=== PATIENT | female | born 1970 | race African-American/Black ===

== ENCOUNTER 2016-10-22 14:45 | Emergency (ER) | payer SELFPAY ==
[~2016-10-22] VITALS: Ht 157.5 cm; Wt 138.0 kg
[~2016-10-22 14:45] MED LIST: CIPR250 PO; DILTCD240 PO; DUONI NEB; NOVOLOGMXP SQ
[2016-10-22 14:47] VITALS: BP 190/131; PULSE 89; RESP 20; TEMP 98.3; O2SAT 91
[2016-10-22 15:39] VITALS: O2SAT 94
[2016-10-22] MEDS ORDERED: SODIUM CHLORIDE 0.9% FLUSH 5 ML FLUSH IVF PRN (15:45)
[2016-10-22] MEDS ORDERED: SODIUM CHLOR 0.9% 1000 ML INJ 1,000 ML IV ONE (16:04)
[2016-10-22 16:15] LABS: BASOPHIL # 0.1 TH/MM3 (0-0.2); BASOPHIL % 1.1 % (0.0-2.0); EOSINOPHIL # 0.2 TH/MM3 (0-0.4); HEMATOCRIT 38.6 % (35.0-46.0); LYMPH % 20.6 % (9.0-44.0); LYMPHOCYTE # 2.4 TH/MM3 (1.0-4.8); MEAN CELL VOLUME 77.5 FL (80.0-100.0); MEAN CORPUSCULAR HEMOGLOBIN 25.1 PG (27.0-34.0); MEAN CORPUSCULAR HGB CONC 32.4 % (32.0-36.0); MONO % 7.7 % (0.0-8.0); NEUT % 68.6 % (16.0-70.0); PLATELET COUNT 219 TH/MM3 (150-450); RED BLOOD COUNT 4.98 MIL/MM3 (4.00-5.30); WHITE BLOOD COUNT 11.7 TH/MM3 (4.0-11.0)
[2016-10-22 16:24] LABS: HEMO FLAGS AUTO DIFF
[2016-10-22 16:39] LABS: ALT (GPT) 23 U/L (10-53); ANION GAP 6 MEQ/L (5-15); AST (GOT) 12 U/L (15-37); BICARBONATE 30.6 MEQ/L (21.0-32.0); BLOOD UREA NITROGEN 10 MG/DL (7-18); CHLORIDE 105 MEQ/L (98-107); GLOMERULAR FILTRATION RATE 101 ML/MIN (>89); POTASSIUM 3.6 MEQ/L (3.5-5.1); SODIUM (NA) 142 MEQ/L (136-145)
--- NOTE | 2016-10-22 16:40 | PD ---
HPI Chief Complaint: Diabetic Time Seen by Provider: 15:34 Travel History International Travel<30 days: No Contact w/Intl Traveler<30days: No Traveled to known affect area: No History of Present Illness HPI Patient is a 38-year-old female presents emergency department for evaluation of high blood sugar. Patient states that she went to have a drug screening for her new job and she was told that she had a lot of sugar in her urine and was recommended that she come in emerged permit. Patient also stated that she knew her blood pressure was elevated yesterday because he had a headache and then blood pressure gets elevated she has headache. Patient states that she was here some time ago and was discharged on insulin which she has not been able to afford she has not been taking it. She's never taken pills for insulin. She is a type II diabetic was diagnosed late life. Denies any fevers chest pain abdominal pain shortness of breath nausea vomiting diarrhea. PFSH Past Medical History Asthma: Yes (BRONCHIAL ASTHMA) Blood Disorders: No Anxiety: No Depression: No Heart Rhythm Problems: No Cancer: No Cardiac Catheterization: No Cardiovascular Problems: Yes (htn) High Cholesterol: No Chest Pain: No Congestive Heart Failure: No COPD: No Diabetes: Yes Patient Takes Glucophage: No Diminished Hearing: No Endocrine: Yes Genitourinary: No Hypertension: Yes Immune Disorder: No Musculoskeletal: No Neurologic: No Psychiatric: No Reproductive: No Respiratory: Yes (asthma) Sleep Apnea: Yes Thyroid Disease: No ?: Not : 3 Para: 2 Miscarriage: 1 Past Surgical History Body Medical Devices: IUD IMPLANT Section: Yes (X 1) Coronary Artery Bypass Graft: No Tonsillectomy: Yes Other Surgery: No Family History Family Myocardial Infarction: Yes Social History Alcohol Use: Yes (OCC) Tobacco Use: Yes Substance Use: No Allergies-Medications (Allergen,Severity, Reaction): Coded Allergies: No Known Allergies (Verified , 12/07/15) Reported Meds & Prescriptions Reported Meds & Active Scripts Active Metformin (Metformin HCl) 850 Mg Tab 850 Mg PO BIDPC 30 Days With meals Reported Duoneb (Ipratropium-Albuterol Neb) 0.5-2.5 Mg/3 Ml Neb 1 Nebule INH Q6HR NEB PRN Review of Systems Except as stated in HPI: all other systems reviewed are Neg Physical Exam Narrative GENERAL: [Well-developed well-nourished, morbidly obese in no apparent distress. SKIN: Warm and dry. HEAD: Atraumatic. Normocephalic. EYES: Pupils equal and round. No scleral icterus. No injection or drainage. ENT: No nasal bleeding or discharge. Mucous membranes pink and moist. NECK: Trachea midline. No JVD. CARDIOVASCULAR: Regular rate and rhythm. No murmur appreciated. RESPIRATORY: No accessory muscle use. Clear to auscultation. Breath sounds equal bilaterally. GASTROINTESTINAL: Abdomen soft, non-tender, nondistended. Hepatic and splenic margins not palpable. MUSCULOSKELETAL: No obvious deformities. No clubbing. No cyanosis. No edema. NEUROLOGICAL: Awake and alert. No obvious cranial nerve deficits. Motor grossly within normal limits. Normal speech. PSYCHIATRIC: Appropriate mood and affect; insight and judgment normal. Data Data Last Documented VS Vital Signs Date Time Temp Pulse Resp B/P Pulse Ox O2 Delivery O2 Flow Rate FiO2 10/22/16 15:39 94 Room Air 10/22/16 15:35 22 10/22/16 14:54 10/22/16 14:47 98.3 89 Orders Electrocardiogram (10/22/16 15:34) Complete Blood Count With Diff (10/22/16 15:34) Comprehensive Metabolic Panel (10/22/16 15:34) Beta Hydroxybutyrate (Acetone) (10/22/16 15:34) Urinalysis - C+S If Indicated (10/22/16 15:34) Ecg Monitoring (10/22/16 15:34) Iv Access Insert/Monitor (10/22/16 15:34) Oximetry (10/22/16 15:34) NPO (10/22/16 15:34) Sodium Chlor 0.9% 1000 Ml Inj (Ns 1000 M (10/22/16 16:04) Sodium Chloride 0.9% Flush (Ns Flush) (10/22/16 15:45) Troponin I (10/22/16 15:34) Labs Laboratory Tests Test 10/22/16 10/22/16 15:30 17:40 White Blood Count 11.7 TH/MM3 Red Blood Count 4.98 MIL/MM3 Hemoglobin 12.5 GM/DL Hematocrit 38.6 % Mean Corpuscular Volume 77.5 FL Mean Corpuscular Hemoglobin 25.1 PG Mean Corpuscular Hemoglobin 32.4 % Concent Red Cell Distribution Width 16.0 % Platelet Count 219 TH/MM3 Mean Platelet Volume 9.1 FL Neutrophils (%) (Auto) 68.6 % Lymphocytes (%) (Auto) 20.6 % Monocytes (%) (Auto) 7.7 % Eosinophils (%) (Auto) 2.0 % Basophils (%) (Auto) 1.1 % Neutrophils # (Auto) 8.0 TH/MM3 Lymphocytes # (Auto) 2.4 TH/MM3 Monocytes # (Auto) 0.9 TH/MM3 Eosinophils # (Auto) 0.2 TH/MM3 Basophils # (Auto) 0.1 TH/MM3 CBC Comment AUTO DIFF Differential Comment AUTO DIFF CONFIRMED Platelet Estimate NORMAL Platelet Morphology Comment NORMAL Red Cell Morphology Comment NORMAL Sodium Level 142 MEQ/L Potassium Level 3.6 MEQ/L Chloride Level 105 MEQ/L Carbon Dioxide Level 30.6 MEQ/L Anion Gap 6 MEQ/L Blood Urea Nitrogen 10 MG/DL Creatinine 0.74 MG/DL Estimat Glomerular Filtration 101 ML/MIN Rate Random Glucose 145 MG/DL Calcium Level 8.7 MG/DL Total Bilirubin 0.2 MG/DL Aspartate Amino Transf 12 U/L (AST/SGOT) Alanine Aminotransferase 23 U/L (ALT/SGPT) Alkaline Phosphatase 74 U/L Troponin I LESS THAN 0.02 NG/ML Total Protein 7.8 GM/DL Albumin 3.1 GM/DL B-Hydroxybutyrate 0.08 MMOL/L Urine Color LIGHT-YELLOW Urine Turbidity CLEAR Urine pH 7.5 Urine Specific [place] 1.009 Urine Protein NEG mg/dL Urine Glucose (UA) NEG mg/dL Urine Ketones NEG mg/dL Urine Occult Blood NEG Urine Nitrite NEG Urine Bilirubin NEG Urine Urobilinogen LESS THAN 2.0 MG/DL Urine Leukocyte Esterase NEG Urine RBC LESS THAN 1 /hpf Urine Squamous Epithelial 1 /hpf Cells Microscopic Urinalysis Comment CULT NOT INDICATED MDM Medical Decision Making Medical Screen Exam Complete: Yes Emergency Medical Condition: Yes Differential Diagnosis Headache, hyperglycemia, DKA unlikely, electrolyte abnormality, glycosuria. Narrative Course Patient is a 38-year-old female presents with headache and a symptomatic glycosuria, she appears well in no apparent distress. Saturating 95% on room air in the emergency department. We'll check basic labs, patient may be a candidate for metformin more than insulin and she never been on pills before this may be preferential to cautiously insulin therapy. I anticipate her labs will be reassuring and she will be discharged home. Patient revisited and discussed her results with her including CBC and BMP which other than hyperglycemia within normal limits. She has no physical complaints or warrants further workup at this time. Discussed with her that I' m unsure why they want to stay control with insulin for her when she left the hospital however insulin therapy can be expensive. I discussed with her that another reasonable option is to start metformin and she is agreeable. Discussed the risks benefits, occasions of all metformin therapy. Prescription written for 850 mg twice a day. Discussed need for follow-up with a primary care physician and she is currently establishing with one. She stable for discharge at this time. Diagnosis Primary Impression: Hyperglycemia due to type 2 diabetes mellitus Qualified Code: E11.65 - Type 2 diabetes mellitus with hyperglycemia, without long-term current use of insulin Med/Other Pt SpecificInfo: Prescription(s) given Scripts Metformin 850 Mg [id number] Mg PO BIDPC 30 Days Ref 0 With meals Prov:Christiano Whatley MD 10/22/16 Disposition: 01 DISCHARGE HOME Condition: Stable Christiano Whatley MD Oct 22, 2016 16:40
[2016-10-22 16:51] LABS: PLATELET ESTIMATE SMEAR NORMAL (NORMAL); PLATELET MORPHOLOGY NORMAL (NORMAL); SCAN/DIFF AUTO DIFF CONFIRMED
[2016-10-22 16:57] LABS: ALKALINE PHOSPHATASE 74 U/L (45-117); BETA-HYDROXYBUTYRATE 0.08 MMOL/L (0.00-0.39); TOTAL BILIRUBIN ADULT 0.2 MG/DL (0.2-1.0)
[2016-10-22] MEDS ORDERED: IPRASOL INH (17:16)
[2016-10-22] MEDS ORDERED: METF850T PO (18:09)
[2016-10-22 18:18] LABS: BLOOD, URINE NEG (NEG); GLUCOSE,URINE NEG (NEG); KETONE, URINE NEG (NEG); NITRITE,URINE NEG (NEG); PH, URINE 7.5 (5.0-8.5); SQUAMOUS EPITHELIAL CELL URINE 1 /hpf (0-5); URINE COLOR LIGHT-YELLOW (YELLW/STRAW)
[2016-10-22 18:33] LABS: COMMENT (UR) CULT NOT INDICATED; CULTURE IF INDICATED CULT NOT INDICATED
--- NOTE | 2016-10-22 20:39 | EKG ---
Date Performed: 10/22/2016 Time Performed: 16:31:10 PTAGE: 46 years EKG: Sinus rhythm NONSPECIFIC T-WAVE ABNORMALITY BORDERLINE ECG PREVIOUS TRACING : 12/07/2015 14.15 Compared to previous tracing, sinus rhythm has replaced sup raventricular tachycardia, heart rate has slowed. DOCTOR: Jad Weeks Interpretating Date/Time 10/22/2016 20:38:49
== END 2016-10-22 19:30 | disposition home or self-care (01) ==
LOC: NEPE 14:45
DX: E11.65 Type 2 diabetes mellitus with hyperglycemia (principal); I10 Essential (primary) hypertension; Z79.4 Long term (current) use of insulin; Z72.0 Tobacco use
CPT/HCPCS: 80053; 81001; 82010; 84484; 85025; 93005; 96360; 99285; J7030

== ENCOUNTER 2016-11-19 17:54 | Emergency (ER) | payer SELFPAY ==
[~2016-11-19] VITALS: Ht 157.5 cm; Wt 157.2 kg
[~2016-11-19 17:54] MED LIST changes: -CIPR250 PO; -DILTCD240 PO; -DUONI NEB; +IPRASOL INH; +METF850T PO; -NOVOLOGMXP SQ
[2016-11-19 18:16] VITALS: BP 138/101; PULSE 84; RESP 20; TEMP 98.4; O2SAT 96
--- NOTE | 2016-11-19 18:43 | PD ---
HPI Chief Complaint: Cold / Flu Symptoms Time Seen by Provider: 18:40 Travel History International Travel<30 days: No Contact w/Intl Traveler<30days: No Traveled to known affect area: No History of Present Illness HPI 46-year-old female with history of COPD, morbid obesity, diabetes, presents to the ER today because she states she has had 2 weeks' history of coughing, is now coughing up brown phlegm. She states that it doesn't seem to be improving. She denies any fevers, chest pains, new shortness of breath, or other symptoms. She states that she is chronically short of breath. She has been using nebulizers at home intermittently. Modifying Factors: None Associated Signs & Symptoms: Coughing with brown phlegm for 2 weeks Risk Factors: COPD history PFSH Past Medical History Asthma: Yes (BRONCHIAL ASTHMA) Blood Disorders: No Anxiety: No Depression: No Heart Rhythm Problems: No Cancer: No Cardiac Catheterization: No Cardiovascular Problems: Yes (htn) High Cholesterol: No Chest Pain: No Congestive Heart Failure: No COPD: No Diabetes: Yes Diminished Hearing: No Endocrine: Yes Genitourinary: No Hypertension: Yes Immune Disorder: No Musculoskeletal: No Neurologic: No Psychiatric: No Reproductive: No Respiratory: Yes (asthma) Sleep Apnea: Yes Thyroid Disease: No ?: Not 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 Para: 2 Miscarriage: 1 Past Surgical History Body Medical Devices: IUD IMPLANT Section: Yes (X 1) Coronary Artery Bypass Graft: No Tonsillectomy: Yes Other Surgery: No Social History Alcohol Use: Yes (OCC) Tobacco Use: Yes Substance Use: No Allergies-Medications (Allergen,Severity, Reaction): Coded Allergies: No Known Allergies (Verified , 11/19/16) Reported Meds & Prescriptions Reported Meds & Active Scripts Active Metformin (Metformin HCl) 850 Mg Tab 850 Mg PO BIDPC 30 Days With meals Review of Systems Except as stated in HPI: all other systems reviewed are Neg Physical Exam Narrative GENERAL: Morbidly obese middle age -[place] female patient currently none acute distress. SKIN: Warm and dry. HEAD: Atraumatic. Normocephalic. EYES: Pupils equal and round. No scleral icterus. No injection or drainage. ENT: No nasal bleeding or discharge. Mucous membranes pink and moist. Mild pharyngeal erythema without significant exudates. NECK: Trachea midline. No JVD. CARDIOVASCULAR: Regular rate and rhythm. No murmur appreciated. RESPIRATORY: No accessory muscle use. Clear to auscultation. Breath sounds equal bilaterally. GASTROINTESTINAL: Abdomen obese, soft, non-tender, nondistended. Hepatic and splenic margins not palpable. MUSCULOSKELETAL: No obvious deformities. No clubbing. No cyanosis. No edema. NEUROLOGICAL: Awake and alert. No obvious cranial nerve deficits. Motor grossly within normal limits. Normal speech. PSYCHIATRIC: Appropriate mood and affect; insight and judgment normal. Data Data Last Documented VS Vital Signs Date Time Temp Pulse Resp B/P Pulse Ox O2 Delivery O2 Flow Rate FiO2 11/19/16 18:16 98.4 84 20 138/101 96 Orders Chest, Single Ap (11/19/16 18:37) Albuterol-Ipratropium Neb (Duoneb Neb) (11/19/16 18:45) [facility] Medical Decision Making Medical Screen Exam Complete: Yes Emergency Medical Condition: Yes Medical Record Reviewed: Yes Differential Diagnosis Coughing for 2 weeks with phlegmbronchitis versus pneumonia versus COPD exacerbation Narrative Course Patient was given nebulizers in the ER. Chest x-rays ordered for the patient. Physician Communication Physician Communication Chest x-ray signed out to Dr. Tyler at 7 PM. Diagnosis Primary Impression: Bronchitis Med/Other Pt SpecificInfo: Prescription(s) given Scripts Prednisone 50 Mg Tab50 Mg PO DAILY #5 TAB Ref 0 Prov:Elio Tam MD 11/19/16 Albuterol 6.7 GM Inh (Proventil Hfa 6.7 GM Inh)90 Mcg/Act Aer2 Puff INH Q4-6H PRN (SHORTNESS OF BREATH) #1 INHALER Ref 0 Prov:Elio Tam MD 11/19/16 Azithromycin (Zithromax Z-Logan)250 Mg [id number] Mg PO DIRECTED #1 DSPK Ref 0 500 MG (2 tabs) day 1, then 1 tab days 2-5. Prov:Elio Tam MD 11/19/16 Condition: Stable Elio Tam MD Nov 19, 2016 18:43
[2016-11-19] MEDS ORDERED: RESP: ALBUTEROL 2.5 MG/IPRATROPIUM 0.5 MG NEB (SCH) INH ONE (18:45)
[2016-11-19] MEDS ORDERED: ZITHTAB PO (19:03)
[2016-11-19] MEDS ORDERED: PRED50 PO (19:04)
[2016-11-19] MEDS ORDERED: ALBU6.7H INH (19:04)
[2016-11-19 19:23] VITALS: BP 163/81; PULSE 81; RESP 18; O2SAT 96
--- NOTE | 2016-11-19 19:31 | RADHPO ---
EXAM DATE/TIME: 11/19/2016 19:11 [facility] COMPARISON: CHEST SINGLE AP, December 07, 2015, 14:16. INDICATIONS : Cough for over two weeks. MEDICAL HISTORY : Diabetes mellitus type II. SURGICAL HISTORY : None. ENCOUNTER: Initial ACUITY: 2 weeks PAIN SCORE: 3/10 LOCATION: Bilateral chest FINDINGS: Mild basilar density most characteristic of minimal atelectasis or scarring. Heart size upper limits of normal to mildly enlarged. No effusion or pneumothorax. CONCLUSION: 1. Minimal basilar atelectasis or scarring. No significant change from November 2015. Arden Reyes MD on November 19, 2016 at 19:29 Board Certified Radiologist. This report was verified electronically.
--- NOTE | 2016-11-19 19:39 | PD ---
Physical Exam Time Seen by Provider: 19:[address] Dodson left this patient with me to check the radiologist reading of the chest x-ray and to discharge the patient on medications that Dr. Dodson prescribed if there was no acute change on the chest x-ray. Data Data Last Documented VS Vital Signs Date Time Temp Pulse Resp B/P Pulse Ox O2 Delivery O2 Flow Rate FiO2 11/19/16 19:24 Room Air 11/19/16 19:23 81 18 163/81 96 11/19/16 18:16 98.4 Orders Chest, Single Ap (11/19/16 18:37) Albuterol-Ipratropium Neb (Duoneb Neb) (11/19/16 18:45) MDM Medical Record Reviewed: Yes Supervised Visit with JANE: Yes Interpretation(s) A chest x-ray shows minimal basilar atelectasis or scarring and no significant change from November 2015. Differential Diagnosis Bronchitis, pneumonia, pneumothoraxhighly unlikely, viral syndrome Narrative Course The patient appears to have a bronchitis. Dr. Dodson prescribed medications for this patient. There are no acute findings on the chest x-ray. Diagnosis Primary Impression: Bronchitis Additional Instruction: As Dr. Dodson discussed, take the medications as prescribed and follow-up with your primary care physician next week. Med/Other Pt SpecificInfo: Prescription(s) given Scripts Prednisone 50 Mg Tab50 Mg PO DAILY #5 TAB Ref 0 Prov:Elio Tam MD 11/19/16 Albuterol 6.7 GM Inh (Proventil Hfa 6.7 GM Inh)90 Mcg/Act Aer2 Puff INH Q4-6H PRN (SHORTNESS OF BREATH) #1 INHALER Ref 0 Prov:Elio Tam MD 11/19/16 Azithromycin (Zithromax Z-Logan)250 Mg [id number] Mg PO DIRECTED #1 DSPK Ref 0 500 MG (2 tabs) day 1, then 1 tab days 2-5. Prov:Elio Tam MD 11/19/16 Condition: Stable Obdulio Tyler MD Nov 19, 2016 19:39
== END 2016-11-19 19:48 | disposition home or self-care (01) ==
LOC: PHED 17:54
DX: J40 Bronchitis, not specified as acute or chronic (principal); Z72.0 Tobacco use
CPT/HCPCS: 71010; 94664; 99283

== ENCOUNTER 2016-12-14 12:06 | Emergency (ER) | payer SELFPAY ==
[~2016-12-14] VITALS: Ht 157.5 cm; Wt 145.0 kg
[~2016-12-14 12:06] MED LIST changes: +ALBU6.7H INH; -IPRASOL INH; +PRED50 PO; +ZITHTAB PO
[2016-12-14 12:08] VITALS: BP 198/94; PULSE 94; RESP 20; TEMP 98.5; O2SAT 94
--- NOTE | 2016-12-14 12:36 | PD ---
Physical Exam Date Seen by Provider: Dec 14, 2016 Time Seen by Provider: 12:32 Narrative Pt is a 46 year old female presenting to the ED with c/o of left knee weakness and right leg sores. Pt states she started a new job Monday and couldn't walk. Reports knee pain. She has been taking Motrin 800mg with no relief. Pt reports pain 8/10. Right leg wounds come and go but they have been present for a week. Draining. BP elevated, pt reports hx of hypertension but is not on medication. Awaiting bed placement. Data Data Last Documented VS Vital Signs Date Time Temp Pulse Resp B/P Pulse Ox O2 Delivery O2 Flow Rate FiO2 12/14/16 12:08 98.5 94 20 198/94 94 Room Air MDM Supervised Visit with JANE: Mary Cortes Dec 14, 2016 12:36
--- NOTE | 2016-12-14 13:01 | PD ---
HPI . chronic left knee pain, small blister to right medial knee skin fold Chief Complaint: Musculoskeletal Complaint Time Seen by Provider: 13:01 Travel History International Travel<30 days: No Contact w/Intl Traveler<30days: No Traveled to known affect area: No History of Present Illness HPI 46-year-old female with history of diabetes, obesity and chronic pain of the knees here with complaints of worsening left knee pain. 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 She is now having difficulty with the left knee and tells me that it is extremely painful to stand for prolonged periods. She denies any recent trauma or injury. She is here hoping that something can be done for her chronic knee pain. She also has a small blister to her right medial knee that has been present for quite some time. She wanted to have it evaluated. I have seen her before through the patient assistance program, but she was unable to get the assistance as there were some financial issues with her daughter. She does not have a PCP. She has no other concerns. PFSH Past Medical History Asthma: Yes (BRONCHIAL ASTHMA) Blood Disorders: No Anxiety: No Depression: No Heart Rhythm Problems: No Cancer: No Cardiac Catheterization: No Cardiovascular Problems: No High Cholesterol: No Chemotherapy: No Chest Pain: No Congestive Heart Failure: No COPD: No Cerebrovascular Accident: No Diabetes: Yes (ORAL MEDS) Diminished Hearing: No Endocrine: Yes Genitourinary: No Hypertension: Yes Immune Disorder: No Musculoskeletal: No Neurologic: No Psychiatric: No Reproductive: No Respiratory: Yes (ASTHMA, SMOKING) Sleep Apnea: Yes Thyroid Disease: No LMP: November, : 3 Para: 2 Miscarriage: 1 Past Surgical History Body Medical Devices: IUD IMPLANT Section: Yes (X 1) Coronary Artery Bypass Graft: No Hysterectomy: No Tonsillectomy: Yes Other Surgery: No Social History Alcohol Use: Yes (OCC) Tobacco Use: No (DENIES) Substance Use: No Allergies-Medications (Allergen,Severity, Reaction): Coded Allergies: No Known Allergies (Verified , 11/19/16) Reported Meds & Prescriptions Reported Meds & Active Scripts Active Proventil Hfa 6.7 GM Inh (Albuterol Sulfate) 90 Mcg/Act Aer 2 Puff INH Q4-6H PRN Metformin (Metformin HCl) 850 Mg Tab 850 Mg PO BIDPC 30 Days With meals Review of Systems General / Constitutional: No: Fever Eyes: No: Visual changes HENT: No: Headaches Cardiovascular: No: Chest Pain or Discomfort Respiratory: No: Shortness of Breath Gastrointestinal: No: Abdominal Pain Genitourinary: No: Dysuria Musculoskeletal: Positive: Pain (left knee pain) Skin: Positive Other (right knee wound ), No Rash Neurologic: No: Weakness Psychiatric: No: Depression Endocrine: No: Polydipsia Hematologic/Lymphatic: No: Easy Bruising Physical Exam Narrative GENERAL: AAO x 3, no acute distress, Well-nourished, well-developed patient. morbidly obese SKIN: Warm and dry. No visible rashes or bruising. small 1 cm healing blister to the skin fold of the medial knee. No evidence of infection, no purulence, drainage, or abn. HEAD: Normocephalic and atraumatic. EYES: No scleral icterus. No injection or drainage. ENT: No nasal drainage noted. Mucous membranes pink. Airway patent. NECK: Supple, trachea midline. No JVD. CARDIOVASCULAR: Regular rate and rhythm without murmurs, gallops, or rubs. RESPIRATORY: Breath sounds equal bilaterally. No accessory muscle use. No rhonchi or rales. GASTROINTESTINAL: Abdomen soft, non-tender, nondistended. EXTREMITIES: No cyanosis or edema. Full ROM b/l knee. mild crepitus of left knee. Valgus and vargus stress testing normal. posterior tibial pulses are normal, legs are symmetrical bilaterally BACK: Nontender without obvious deformity. No CVA tenderness. PSYCH: AAO x 3, normal affect. Data Data Last Documented VS Vital Signs Date Time Temp Pulse Resp B/P Pulse Ox O2 Delivery O2 Flow Rate FiO2 12/14/16 12:08 98.5 94 20 198/94 94 Room Air MDM Medical Decision Making Medical Screen Exam Complete: Yes Emergency Medical Condition: No Medical Record Reviewed: Yes Differential Diagnosis chronic knee pain, skin blister, Narrative Course 46-year-old female with history of diabetes, obesity and chronic pain of the knees here with complaints of worsening left knee pain. 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 She is now having difficulty with the left knee and tells me that it is extremely painful to stand for prolonged periods. She denies any recent trauma or injury. She is here hoping that something can be done for her chronic knee pain. She also has a small blister to her right medial knee that has been present for quite some time. She wanted to have it evaluated. I have seen her before through the patient assistance program, but she was unable to get the assistance as there were some financial issues with her daughter. She does not have a PCP. She has no other concerns. Patient seen and examined. She appears to have chronic knee pain and a small 1 cm blister that is not infected and actually healing. I had a long discussion with her regarding her chronic knee issues. I've explained to her that this is not an acute issue and imaging is not indicated. She was understanding. I explained that the right leg blister is healing and not infected. A medical screening exam was performed: At the time of evaluation the presenting medical condition was determined not to be of an emergent nature. The patient was given the option of receiving additional care, but declined. Patient was given options for additional community resources from which to obtain care. The Patient Has Been advised to seek medical attention for their presenting complaint. The patient has been advised to return to the ER at any time if an emergent condition develops. Diagnosis Primary Impression: Encounter for medical screening examination Condition: Linda Melo Dec 14, 2016 13:01
== END 2016-12-14 13:45 | disposition left against medical advice (07) ==
LOC: NEPK 12:06
DX: M25.561 Pain in right knee (principal); M25.562 Pain in left knee; G89.29 Other chronic pain
CPT/HCPCS: 99281

== ENCOUNTER 2017-05-18 10:28 | Emergency (ER) | payer SELFPAY ==
[~2017-05-18] VITALS: Ht 157.5 cm; Wt 136.5 kg
[~2017-05-18 10:28] MED LIST changes: -PRED50 PO; -ZITHTAB PO
[2017-05-18 10:30] VITALS: BP 207/95; PULSE 108; RESP 16; TEMP 99.1; O2SAT 99
[2017-05-18] MEDS ORDERED: RESP: ALBUTEROL 2.5 MG/IPRATROPIUM 0.5 MG NEB (SCH) INH ONE (11:15)
[2017-05-18] MEDS ORDERED: MEDR4PAK PO (12:10)
[2017-05-18] MEDS ORDERED: ZITHTAB PO (12:10)
--- NOTE | 2017-05-18 12:10 | PD ---
HPI Chief Complaint: Respiratory Symptoms Time Seen by Provider: 11:00 Travel History International Travel<30 days: No Contact w/Intl Traveler<30days: No Traveled to known affect area: No History of Present Illness HPI C/O COUGH, DRY, WHEEZING, WITHOUT ANY PRODUCTIVE SPUTUM, PATIENT IS OUT OF HOME MEDS AND STATES GETS THIS RESP ILLNESS AT LEAST ONCE A YEAR. PFSH Past Medical History Asthma: Yes (BRONCHIAL ASTHMA) Blood Disorders: No Anxiety: No Depression: No Heart Rhythm Problems: No Cancer: No Cardiac Catheterization: No Cardiovascular Problems: No High Cholesterol: No Chemotherapy: No Chest Pain: No Congestive Heart Failure: No COPD: No Cerebrovascular Accident: No Diabetes: Yes Patient Takes Glucophage: No Diminished Hearing: No Endocrine: Yes Genitourinary: No Hypertension: Yes Immune Disorder: No Musculoskeletal: No Neurologic: No Psychiatric: No Reproductive: No Respiratory: Yes (ASTHMA) Sleep Apnea: Yes Thyroid Disease: No Tetanus Vaccination: Unknown Influenza Vaccination: No ?: Not LMP: : 3 Para: 2 Miscarriage: 1 : 0 Past Surgical History Body Medical Devices: IUD IMPLANT Section: Yes (X 1) Coronary Artery Bypass Graft: No Hysterectomy: No Tonsillectomy: Yes Other Surgery: No Family History Family Myocardial Infarction: Yes Social History Alcohol Use: Yes (OCC) Tobacco Use: No (DENIES) Substance Use: No Allergies-Medications (Allergen,Severity, Reaction): Coded Allergies: No Known Allergies (Verified , 05/18/17) Reported Meds & Prescriptions Reported Meds & Active Scripts Active Zithromax Z-Logan (Azithromycin) 250 Mg Dspk 250 Mg PO DIRECTED 500 MG (2 tabs) day 1, then 1 tab days 2-5. Medrol Dosepak (Methylprednisolone) 4 Mg Dspk 4 Mg PO DIRECTED Per Pharmacist direction Proventil Hfa 6.7 GM Inh (Albuterol Sulfate) 90 Mcg/Act Aer 2 Puff INH Q4-6H PRN Metformin (Metformin HCl) 850 Mg Tab 850 Mg PO BIDPC 30 Days With meals Review of Systems Except as stated in HPI: all other systems reviewed are Neg Respiratory: Positive: Cough, Wheezing Physical Exam Narrative GENERAL: SKIN: Warm and dry. HEAD: Atraumatic. Normocephalic. EYES: Pupils equal and round. No scleral icterus. No injection or drainage. ENT: No nasal bleeding or discharge. Mucous membranes pink and moist. NECK: Trachea midline. No JVD. CARDIOVASCULAR: Regular rate and rhythm. RESPIRATORY: No accessory muscle use. WHEEZING BUT WITH GREAT TV. Breath sounds equal bilaterally. GASTROINTESTINAL: Abdomen soft, non-tender, nondistended. MUSCULOSKELETAL: Extremities without clubbing, cyanosis, or edema. No obvious deformities. NEUROLOGICAL: Awake and alert. No obvious cranial nerve deficits. Motor grossly within normal limits. Five out of 5 muscle strength in the arms and legs. Normal speech. PSYCHIATRIC: Appropriate mood and affect; insight and judgment normal. Data Data Last Documented VS Vital Signs Date Time Temp Pulse Resp B/P (MAP) Pulse Ox O2 Delivery O2 Flow Rate FiO2 05/18/17 12:22 05/18/17 10:30 99.1 108 16 99 Orders Orders Chest, Single Ap (05/18/17 11:06) Albuterol-Ipratropium Neb (Duoneb Neb) (05/18/17 11:15) MDM Medical Decision Making Medical Screen Exam Complete: Yes Emergency Medical Condition: Yes Medical Record Reviewed: Yes Differential Diagnosis ASTHMA V BRONCHITIS V PNA Narrative Course AFTER EVALUATION OF CHEST XRAY, NO PNEUMONIA NOTED, AND PATIENT IMPROVED GREATLY AFTER NEBS, WILL D/C HOME WITH ABX, STEROID AND INHALER Diagnosis Primary Impression: Bronchitis Patient Instructions: General Instructions, Wheezing (ED) Scripts Azithromycin (Zithromax Z-Logan) 250 Mg Dspk 250 MG PO DIRECTED for Infection, #1 DSPK 0 Refills 500 MG (2 tabs) day 1, then 1 tab days 2-5. Prov: Steven Patel MD 05/18/17 Methylprednisolone Dosepak (Medrol Dosepak) 4 Mg Dspk 4 MG PO DIRECTED, #1 DSPK 0 Refills Per Pharmacist direction Prov: Steven Patel MD 05/18/17 Disposition: 01 DISCHARGE HOME Condition: Stable Steven Patel MD May 18, 2017 12:10
--- NOTE | 2017-05-18 12:28 | RADRPT ---
EXAM DATE/TIME: 05/18/2017 12:01 [facility] COMPARISON: CHEST SINGLE AP, November 19, 2016, 19:11. INDICATIONS : Cough and short of breath for several days MEDICAL HISTORY : asthma SURGICAL HISTORY : None. ENCOUNTER: Initial ACUITY: 3 days PAIN SCORE: 0/10 LOCATION: Bilateral chest FINDINGS: A single view of the chest demonstrates the lungs to be symmetrically aerated without evidence of mas s, infiltrate or effusion. Linear atelectatic changes in the left lower lung field. Heart size is pr ominent but well compensated. Osseous structures are intact. CONCLUSION: 1. Linear atelectatic changes in the left lower lung field. Lungs are otherwise clear. 2. Compensated cardiomegaly. John Pratt MD on May 18, 2017 at 12:26 Board Certified Radiologist. This report was verified electronically.
== END 2017-05-18 12:25 | disposition home or self-care (01) ==
LOC: NEPD 10:28
DX: J20.9 Acute bronchitis, unspecified (principal); J45.909 Unspecified asthma, uncomplicated; G47.30 Sleep apnea, unspecified
CPT/HCPCS: 71010; 94664; 99284

== ENCOUNTER 2017-05-20 08:24 | Observation (INO) | payer SELFPAY ==
[2017-05-20] VITALS (7 sets, daily range): BP systolic 138–201; BP diastolic 78–116; PULSE 66–84; RESP 18; TEMP 98.1–98.9; O2SAT 93–96
[~2017-05-20] VITALS: Ht 157.5 cm; Wt 152.4 kg
[~2017-05-20 08:24] MED LIST changes: +MEDR4PAK PO; +ZITHTAB PO
--- NOTE | 2017-05-20 08:39 | PD ---
HPI Chief Complaint: shortness of breath Time Seen by Provider: 08:35 Travel History International Travel<30 days: No Contact w/Intl Traveler<30days: No Traveled to known affect area: No History of Present Illness HPI 46-year-old female patient with history of asthma, seen 2 days ago for bronchitis in the ER, had been treated with steroids and Zithromax for about 2 days, returns to the ER today because she states that she has been using her nebulizer and inhaler at the medications given but she states that her cough does not seem to be getting any better. She states that in fact is John worse this morning. She has not use any inhalers this morning. She also complains of low-grade subjective fevers. She denies any nausea, vomiting, chest pains, or any other symptoms. Modifying Factors: None Associated Signs & Symptoms: Coughing, shortness of breath Risk Factors: Seen recently for bronchitis, asthma history PFSH Past Medical History Asthma: Yes (BRONCHIAL ASTHMA) Blood Disorders: No Anxiety: No Depression: No Heart Rhythm Problems: No Cancer: No Cardiac Catheterization: No Cardiovascular Problems: No High Cholesterol: No Chemotherapy: No Chest Pain: No Congestive Heart Failure: No COPD: No Cerebrovascular Accident: No Diabetes: Yes Diminished Hearing: No Endocrine: Yes Genitourinary: No Hypertension: Yes Immune Disorder: No Musculoskeletal: No Neurologic: No Psychiatric: No Reproductive: No Respiratory: Yes (ASTHMA) Sleep Apnea: Yes Thyroid Disease: No : 3 Para: 2 Miscarriage: 1 : 0 Past Surgical History Body Medical Devices: IUD IMPLANT Section: Yes (X 1) Coronary Artery Bypass Graft: No Hysterectomy: No Tonsillectomy: Yes Other Surgery: No Social History Alcohol Use: Yes (OCC) Tobacco Use: No (DENIES) Substance Use: No Allergies-Medications (Allergen,Severity, Reaction): Coded Allergies: No Known Allergies (Verified , 05/20/17) Reported Meds & Prescriptions Reported Meds & Active Scripts Active Zithromax Z-Logan (Azithromycin) 250 Mg Dspk 250 Mg PO DIRECTED 500 MG (2 tabs) day 1, then 1 tab days 2-5. Medrol Dosepak (Methylprednisolone) 4 Mg Dspk 4 Mg PO DIRECTED Per Pharmacist direction Proventil Hfa 6.7 GM Inh (Albuterol Sulfate) 90 Mcg/Act Aer 2 Puff INH Q4-6H PRN Review of Systems Except as stated in HPI: all other systems reviewed are Neg Physical Exam Narrative GENERAL: Well-developed middle age obese -[place] female patient currently in mild respiratory distress, coughing intermittently, awake, alert, oriented 3. SKIN: Focused skin assessment warm/dry. HEAD: Atraumatic. Normocephalic. EYES: Pupils equal and round. No scleral icterus. No injection or drainage. ENT: No nasal bleeding or discharge. Mucous membranes pink and moist. NECK: Trachea midline. No JVD. CARDIOVASCULAR: Regular rate and rhythm. No murmur appreciated. RESPIRATORY: Mild accessory muscle use. Mild wheezes throughout bilaterally with no crackles or rhonchi. Breath sounds equal bilaterally. GASTROINTESTINAL: Abdomen soft, non-tender, nondistended. Hepatic and splenic margins not palpable. MUSCULOSKELETAL: No obvious deformities. No clubbing. No cyanosis. No edema. NEUROLOGICAL: Awake and alert. No obvious cranial nerve deficits. Motor grossly within normal limits. Normal speech. PSYCHIATRIC: Appropriate mood and affect; insight and judgment normal. Data Data Last Documented VS Vital Signs Date Time Temp Pulse Resp B/P (MAP) Pulse Ox O2 Delivery O2 Flow Rate FiO2 05/20/17 08:40 20 96 Room Air 05/20/17 08:30 98.9 84 201/116 (144) Orders Orders Ecg Monitoring (05/20/17 08:35) Oximetry (05/20/17 08:35) Oxygen Administration (05/20/17 08:35) Chest, Single Ap (05/20/17 08:35) Albuterol-Ipratropium Neb (Duoneb Neb) (05/20/17 08:45) Dexamethasone Inj (Decadron Inj) (05/20/17 08:45) Clonidine (Catapres) (05/20/17 09:45) Albuterol-Ipratropium Neb (Duoneb Neb) (05/20/17 10:00) Admit Order (Ed Use Only) (05/20/17 10:49) [facility] Medical Decision Making Medical Screen Exam Complete: Yes Emergency Medical Condition: Yes Medical Record Reviewed: Yes Interpretation(s) Last 24 hours Impressions Chest X-Ray 05/20/17 0836 Signed Impressions: Service Date/Time: Monday, May 20, 2017 09:29 - CONCLUSION: Underinflation with linear atelectasis versus scar at the left lung base. Otherwise, no acute finding is appreciated given the technique. Beto Owens MD Differential Diagnosis Bronchitis versus pneumonia versus asthma exacerbation versus viral pneumonitis Narrative Course Patient has been on antibiotics and asthma treatment for 2 days without improvement. Chest x-ray did not show any signs of acute pneumonia or other acute processes. She was given steroid and nebulizer treatments with only mild improvement in symptoms. After 4 nebulizers, she is still wheezing. At this point, my plan would be to admit her for failed outpatient therapy. Case was discussed with Dr. Coronado for admission. Diagnosis Primary Impression: Asthma exacerbation Admitting Information Admitting Physician Requests: Admit Elio Tam MD May 20, 2017 08:39
[2017-05-20] MEDS ORDERED: DEXAMETHASONE SOD PHOS 4 MG/ML VIAL IM ONE (08:45)
[2017-05-20] MEDS: RESP: ALBUTEROL 2.5 MG/IPRATROPIUM 0.5 MG NEB (SCH) INH ×4 (08:53→10:10)
[2017-05-20] MEDS ORDERED: cloNIDine HCL 0.2 MG TAB PO ONE (09:45)
--- NOTE | 2017-05-20 10:00 | RADRPT ---
EXAM DATE/TIME: 05/20/2017 09:29 [facility] COMPARISON: CHEST SINGLE AP, November 19, 2016, 19:11. CHEST SINGLE AP, May 18, 2017, 12:01. INDICATIONS : Short of breath. Congestion. MEDICAL HISTORY : None. SURGICAL HISTORY : None. ENCOUNTER: Initial ACUITY: 4 - 6 days PAIN SCORE: 7/10 LOCATION: Bilateral chest FINDINGS: Portable AP view of the chest demonstrates a normal-sized cardiac silhouette. Lungs are mildly underi nflated. No effusion, consolidation, or pneumothorax is appreciated. There is presumed mild atelectas is at the right lung base. Bones and soft tissues demonstrate no acute finding.. There is stable line ar opacity at the left lung base. CONCLUSION: Underinflation with linear atelectasis versus scar at the left lung base. Otherwise, no acute finding is appreciated given the technique. Beto Owens MD on May 20, 2017 at 9:57 Board Certified Radiologist. This report was verified electronically.
[2017-05-20] MEDS ORDERED: SODIUM CHLORIDE 0.9% FLUSH 10 ML FLUSH IV FLUSH PRN (11:15)
[2017-05-20 11:24] LABS: BASOPHIL % 0.2 % (0.0-2.0); EOSINOPHIL % 0.2 % (0.0-4.0); HEMATOCRIT 40.6 % (35.0-46.0); HEMO FLAGS DIFF FINAL; LYMPH % 13.8 % (9.0-44.0); LYMPHOCYTE # 1.5 TH/MM3 (1.0-4.8); MEAN CELL VOLUME 78.9 FL (80.0-100.0); MEAN CORPUSCULAR HEMOGLOBIN 25.3 PG (27.0-34.0); MONO % 6.3 % (0.0-8.0); NEUT % 79.5 % (16.0-70.0); PLATELET COUNT 211 TH/MM3 (150-450); RED BLOOD COUNT 5.15 MIL/MM3 (4.00-5.30); RED CELL DISTRIBUTION WIDTH 14.8 % (11.6-17.2); WHITE BLOOD COUNT 11.2 TH/MM3 (4.0-11.0)
[2017-05-20 11:34] LABS: POTASSIUM 3.2 MEQ/L (3.5-5.1)
[2017-05-20 11:38] LABS: BICARBONATE 30.9 MEQ/L (21.0-32.0)
[2017-05-20 11:43] LABS: BLOOD GAS BASE EXCESS 3.8 mmol/L (-2-2); BLOOD GAS CARBOXYHEMOGLOBIN 1.4 % (0-4); BLOOD GAS HCO3 28 mmol/L (22-26); BLOOD GAS METHEMOGLOBIN 1.4 % (0-2); BLOOD GAS O2 HGB SATURATION 92 % (90-100); BLOOD GAS OXYGEN CONTENT 17.5 Vol % (12.0-20.0); BLOOD GAS PCO2 47 mmHg (38-42); BLOOD GAS PO2 74 mmHg (61-120); BLOOD GAS TOTAL HGB 13.5 G/DL (12.0-16.0); CRITICAL VALUE NO; DRAW SITE RT RADIAL; FIO2 21 %; NUMBER OF ARTERIAL PUNCTURES 1; OXYGEN DEVICE ROOM AIR; STAT NO; ULNAR PULSE PRESENT
[2017-05-20] MEDS: ENOXAPARIN SODIUM 40 MG/0.4 ML SYRINGE SQ SCH (12:00)
[2017-05-20] MEDS: RESP: ALBUTEROL 2.5 MG/3 ML NEB (PRN) NEB (12:34)
[2017-05-20] MEDS ORDERED: GLUCAGON 1 MG/ML VIAL OTHER PRN (15:15)
[2017-05-20] MEDS ORDERED: DEXTROSE 50% IN WATER 50 ML VIAL(D50) IV PUSH PRN (15:15)
--- NOTE | 2017-05-20 15:23 | HHI.HP ---
[facility] Service [facility] Primary Care Physician No Primary Care Physician Admission Diagnosis asthma exacerbation/failed outpatient therapy/chronic hypertension Diagnoses: Chief Complaint: sob Travel History International Travel<30 Days: No Contact w/Intl Traveler <30 Da: No Traveled to Known Affected Are: No History of Present Illness This is a 46 year female with known asthma and about 2 weeks of increased work of breathing and dyspnea on exertion. Last 3 days have been worse and the patient was unable to give her with her breathing needs by using her nebulizers at home. She actually had run out of her medicine. She came to the emergency room for further evaluation and was tachypneic and with signs and symptoms of acute exacerbation of asthma. Patient received updrafts and felt better however she is still moving minimal amount of air and for this reason she has been recommended for further observation in the hospital. She has been present diagnosed as diabetic but has been unable to keep up with her medications due to cost. Review of Systems Constitutional: DENIES: Diaphoretic episodes, Fatigue, Fever, Weight gain, Weight loss, Chills, Dizziness, Change in appetite, Night Sweats Endocrine: DENIES: Abnorml menstrual pattern, Heat/cold intolerance, Polydipsia , Polyuria, Polyphagia Eyes: DENIES: Blurred vision, Diplopia, Eye inflammation, Eye pain, Vision loss , Photosensitivity, Double Vision Respiratory: COMPLAINS OF: Cough, Wheezing, Shortness of breath, DENIES: Apneas , Snoring, Hemoptysis, Sputum production Cardiovascular: DENIES: Chest pain, Palpitations, Syncope, Dyspnea on Exertion , PND, Lower Extremity Edema, Orthopnea, Claudication Gastrointestinal: DENIES: Abdominal pain, Black stools, Bloody stools, Constipation, Diarrhea, Nausea, Vomiting, Difficulty Swallowing, Anorexia Genitourinary: DENIES: Abnormal vaginal bleeding, Dysmenorrhea, Dyspareunia, Sexual dysfunction, Urinary frequency, Urinary incontinence, Urgency, Hematuria , Dysuria, Nocturia, Vaginal discharge Musculoskeletal: DENIES: Joint pain, Muscle aches, Stiffness, Joint Swelling, Back pain, Neck pain Integumentary: DENIES: Abnormal pigmentation, Pruritus, Rash, Nail changes, Breast masses, Breast skin changes, Nipple discharge Hematologic/lymphatic: DENIES: Bruising, Lymphadenopathy Immunologic/allergic: DENIES: Eczema, Urticaria Neurologic: DENIES: Abnormal gait, Headache, Localized weakness, Paresthesias, Seizures, Speech Problems, Tremor, Poor Balance Except as stated in HPI: all other systems reviewed are Neg Past Family Social History Past Medical History Asthma Hypertension Past Surgical History Tonsillectomy Reported Medications Review in the medical record, ran out of her medications Allergies: Coded Allergies: No Known Allergies (Verified , 05/20/17) Active Ordered Medications reviewed in the medical record Family History Family history diabetes Social History No tobacco No alcohol Lives with her family Physical Exam Vital Signs Vital Signs Date Time Temp Pulse Resp B/P (MAP) Pulse Ox O2 Delivery O2 Flow Rate FiO2 05/20/17 12:45 98.1 72 18 180/94 (122) 95 05/20/17 12:10 72 19 139/78 (98) 97 05/20/17 11:05 66 18 138/85 (102) 95 Room Air 05/20/17 08:40 20 96 Room Air 05/20/17 08:39 96 Room Air 05/20/17 08:30 98.9 84 18 201/116 (144) 95 Physical Exam GENERAL: This is an obese, well-developed patient, in no apparent distress. SKIN: No rashes, ecchymoses or lesions. Cool and dry. HEAD: Atraumatic. Normocephalic. No temporal or scalp tenderness. EYES: Pupils equal round and reactive. Extraocular motions intact. No scleral icterus. No injection or drainage. ENT: Nose without bleeding, purulent drainage or septal hematoma. Throat without erythema, tonsillar hypertrophy or exudate. Uvula midline. Airway patent. NECK: Trachea midline. No JVD or lymphadenopathy. Supple, nontender, no meningeal signs. CARDIOVASCULAR: Regular rate and rhythm without murmurs, gallops, or rubs. RESPIRATORY: Clear to auscultation. Breath sounds equal bilaterally. No wheezes , rales, or rhonchi. GASTROINTESTINAL: Abdomen soft, non-tender, nondistended. No hepato-splenomegaly , or palpable masses. No guarding. MUSCULOSKELETAL: Extremities without clubbing, cyanosis, or edema. No joint tenderness, effusion, but there is +2 edema noted. No calf tenderness. Negative Homans sign bilaterally. NEUROLOGICAL: Awake and alert. Cranial nerves II through XII intact. Motor and sensory grossly within normal limits. Five out of 5 muscle strength in all muscle groups. Normal speech. Laboratory Laboratory Tests Test 05/20/17 11:15 05/20/17 11:35 White Blood Count 11.2 Red Blood Count 5.15 Hemoglobin 13.0 Hematocrit 40.6 Mean Corpuscular Volume 78.9 Mean Corpuscular Hemoglobin 25.3 Mean Corpuscular Hemoglobin Concent 32.0 Red Cell Distribution Width 14.8 Platelet Count 211 Mean Platelet Volume 8.7 Neutrophils (%) (Auto) 79.5 Lymphocytes (%) (Auto) 13.8 Monocytes (%) (Auto) 6.3 Eosinophils (%) (Auto) 0.2 Basophils (%) (Auto) 0.2 Neutrophils # (Auto) 9.0 Lymphocytes # (Auto) 1.5 Monocytes # (Auto) 0.7 Eosinophils # (Auto) 0.0 Basophils # (Auto) 0.0 CBC Comment DIFF FINAL Differential Comment Blood Urea Nitrogen 11 Creatinine 0.72 Random Glucose 239 Calcium Level 8.8 Sodium Level 137 Potassium Level 3.2 Chloride Level 99 Carbon Dioxide Level 30.9 Anion Gap 7 Estimat Glomerular Filtration Rate 105 Blood Gas Puncture Site RT RADIAL Blood Gas Patient Temperature 37.0 Blood Gas HCO3 28 Blood Gas Base Excess 3.8 Blood Gas Oxygen Saturation 92 Arterial Blood pH 7.40 Arterial Blood Partial Pressure CO2 47 Arterial Blood Partial Pressure O2 74 Arterial Blood Oxygen Content 17.5 Arterial Blood Carboxyhemoglobin 1.4 Arterial Blood Methemoglobin 1.4 Blood Gas Hemoglobin 13.5 Oxygen Delivery Device ROOM AIR Blood Gas Inspired Oxygen 21 Result Diagram: 05/20/17 1115 05/20/17 1115 Imaging Last Impressions Chest X-Ray 05/20/17 0835 Signed Impressions: Service Date/Time: Saturday, May 20, 2017 09:29 - CONCLUSION: Underinflation with linear atelectasis versus scar at the left lung base. Otherwise, no acute finding is appreciated given the technique. MD Audi Hernandez VTE Risk Assessment Audi VTE Risk Assessment: Mod/High Risk (score >= 2) Caprini Risk Assessment Model Point Value = 1 Point Value = 2 Point Value = 3 Point Value = 5 Age 41-60 Minor surgery BMI > 25 kg/m2 Swollen legs Varicose veins or History of unexplained or recurrent spontaneous Oral contraceptives or hormone replacement Sepsis (< 1 month) Serious lung disease, including pneumonia (< 1 month) Abnormal pulmonary function Acute myocardial infarction Congestive heart failure (< 1 month) History of inflammatory bowel disease Medical patient at bed rest Age 61-74 Arthroscopic surgery Major open surgery (> 45 min) Laparoscopic surgery (> 45 min) Malignancy Confined to bed (> 72 hours) Immobilizing plaster cast Central venous access Age >= 75 History of VTE Family history of VTE Factor V Leiden Prothrombin [id number] Lupus anticoagulant Anticardiolipin antibodies Elevated serum homocysteine Heparin-induced thrombocytopenia Other congenital or acquired thrombophilia Stroke (< 1 month) Elective arthroplasty Hip, pelvis, or leg fracture Acute spinal cord injury (< 1 month) Prophylaxis Regimen Total Risk Factor Score Risk Level Prophylaxis Regimen 0-1 Low Early ambulation 2 Moderate Order ONE of the following: *Sequential Compression Device (SCD) *Heparin 5000 units SQ BID 3-4 Higher Order ONE of the following medications: *Heparin 5000 units SQ TID *Enoxaparin/Lovenox 40 mg SQ daily (WT < 150 kg, CrCl > 30 mL/min) *Enoxaparin/Lovenox 30 mg SQ daily (WT < 150 kg, CrCl > 10-29 mL/min) *Enoxaparin/Lovenox 30 mg SQ BID (WT < 150 kg, CrCl > 30 mL/min) AND/OR *Sequential Compression Device (SCD) 5 or more Highest Order ONE of the following medications: *Heparin 5000 units SQ TID (Preferred with Epidurals) *Enoxaparin/Lovenox 40 mg SQ daily (WT < 150 kg, CrCl > 30 mL/min) *Enoxaparin/Lovenox 30 mg SQ daily (WT < 150 kg, CrCl > 10-29 mL/min) *Enoxaparin/Lovenox 30 mg SQ BID (WT < 150 kg, CrCl > 30 mL/min) AND *Sequential Compression Device (SCD) Assessment and Plan Problem List: (1) Asthma exacerbation ICD Code: J45.901 - Unspecified asthma with (acute) exacerbation Status: Acute Plan: Continue steroids with albuterol Patient education provided at bedside (2) Diabetes ICD Code: E11.9 - Type 2 diabetes mellitus without complications Status: Chronic Plan: Nonadherent with medical treatment, continue diabetic diet and sliding scale Code Status full code Estela Coronado MD May 20, 2017 15:23
[2017-05-20] MEDS: RESP: ALBUTEROL 2.5 MG/IPRATROPIUM 0.5 MG NEB (SCH) NEB ×2 (15:47→19:33)
[2017-05-20] MEDS: INSULIN ASPART SUPPLEMENTAL SCALE SQ SCH ×2 (17:00→21:36)
[2017-05-20] MEDS: BENZONATATE 100 MG CAP PO PRN (17:12)
[2017-05-20] MEDS: metFORMIN HCL 500 MG TAB PO SCH (17:13)
[2017-05-20] MEDS: diphenhydrAMINE HCL 50 MG CAP PO PRN (21:36)
[2017-05-20] MEDS: SODIUM CHLORIDE 0.9% FLUSH 10 ML FLUSH IV FLUSH SCH (21:37)
[2017-05-20] MEDS: predniSONE 20 MG TAB PO SCH (21:37)
[2017-05-21] VITALS: BP 189/102; PULSE 81; RESP 18; TEMP 98.1; O2SAT 96
[2017-05-21] MEDS: RESP: ALBUTEROL 2.5 MG/3 ML NEB (PRN) NEB ×2 (00:09→11:13)
[2017-05-21] MEDS: BENZONATATE 100 MG CAP PO PRN (00:37)
[2017-05-21] MEDS: RESP: ALBUTEROL 2.5 MG/IPRATROPIUM 0.5 MG NEB (SCH) NEB ×3 (07:18→20:53)
[2017-05-21 08:00] VITALS: BP 163/102; PULSE 61; RESP 18; TEMP 97.7; O2SAT 96
[2017-05-21] MEDS: INSULIN ASPART SUPPLEMENTAL SCALE SQ SCH ×4 (08:00→21:47)
--- NOTE | 2017-05-21 09:36 | HHI.PR ---
Subjective Remarks Patient seen today in follow-up for acute asthma exacerbation and for type 2 diabetes which is uncontrolled. Patient education provided. Care plan discussed with patient and Berta RN Objective Vitals Vital Signs Date Time Temp Pulse Resp B/P (MAP) Pulse Ox O2 Delivery O2 Flow Rate FiO2 05/21/17 00:00 98.1 81 18 189/102 (131) 96 05/20/17 20:00 98.2 74 18 196/101 (132) 93 05/20/17 16:00 98.1 73 18 154/97 (116) 93 05/20/17 12:45 98.1 72 18 180/94 (122) 95 05/20/17 12:10 72 19 139/78 (98) 97 05/20/17 11:05 66 18 138/85 (102) 95 Room Air I/O 05/20/17 05/20/17 05/20/17 05/21/17 05/21/17 05/21/17 07:00 15:00 23:00 07:00 15:00 23:00 Intake Total 480 ml 240 ml Balance 480 ml 240 ml Intake Oral 480 ml 240 ml # Voids 2 Result Diagram: 05/20/17 1115 05/20/17 1115 Objective Remarks Acanthosis nigricans GENERAL: This is a well-nourished, well-developed patient, in no apparent distress. CARDIOVASCULAR: Regular rate and rhythm without murmurs, gallops, or rubs. RESPIRATORY: Clear to auscultation. Breath sounds equal bilaterally. No wheezes , rales, or rhonchi. GASTROINTESTINAL: Abdomen soft, non-tender, nondistended. Normal active bowel sounds MUSCULOSKELETAL: Extremities without clubbing, cyanosis, or edema. NEURO: Alert & Oriented x4 to person, place, time, situation. Moves all ext x4 A/P Problem List: (1) Asthma exacerbation ICD Code: J45.901 - Unspecified asthma with (acute) exacerbation Status: Acute Plan: Continue IV steroids with albuterol Patient education provided at bedside stable on room air (2) Diabetes ICD Code: E11.9 - Type 2 diabetes mellitus without complications Status: Chronic Plan: Nonadherent with medical treatment, continue diabetic diet and sliding scale Continue metformin And long-acting insulin hemoglobin A1c pending Discharge Planning home 1-2 days Estela Coronado MD May 21, 2017 09:36
[2017-05-21] MEDS: metFORMIN HCL 500 MG TAB PO SCH ×2 (09:38→17:45)
[2017-05-21] MEDS: predniSONE 20 MG TAB PO SCH ×2 (09:38→21:46)
[2017-05-21] MEDS: SODIUM CHLORIDE 0.9% FLUSH 10 ML FLUSH IV FLUSH SCH ×2 (09:38→21:52)
[2017-05-21 11:05] LABS: HEMOGLOBIN A1b 0.8 %; HEMOGLOBIN Ao 54.9 %; HEMOGLOBIN F 1.4 %; HEMOGLOBIN LA1C 1.6 %; HEMOGLOBIN P3 3.3 %
[2017-05-21] MEDS: ENOXAPARIN SODIUM 40 MG/0.4 ML SYRINGE SQ SCH (13:51)
[2017-05-21] MEDS ORDERED: DEXTROMETHORPHAN SYRUP 7.5MG/5ML UDC PO PRN (14:00)
[2017-05-21] MEDS: guaiFENesin E.R. 600 MG TAB PO SCH ×2 (14:57→21:46)
[2017-05-21 16:00] VITALS: BP 191/99; PULSE 73; RESP 18; TEMP 98.4; O2SAT 96
[2017-05-21 20:00] VITALS: BP 116/65; PULSE 74; RESP 20; TEMP 97.7; O2SAT 96
[2017-05-21] MEDS: INSULIN DETEMIR 100 UNITS/ML VIAL SQ SCH (21:46)
[2017-05-21] MEDS: diphenhydrAMINE HCL 50 MG CAP PO PRN (21:46)
[2017-05-22] VITALS: BP 133/85; PULSE 77; RESP 18; TEMP 97.6; O2SAT 96
[2017-05-22] MEDS: RESP: ALBUTEROL 2.5 MG/IPRATROPIUM 0.5 MG NEB (SCH) NEB ×3 (07:04→20:12)
[2017-05-22 08:00] VITALS: BP 192/90; PULSE 79; RESP 22; TEMP 96.6; O2SAT 95
[2017-05-22] MEDS: INSULIN ASPART SUPPLEMENTAL SCALE SQ SCH ×4 (08:00→20:48)
[2017-05-22] MEDS: guaiFENesin E.R. 600 MG TAB PO SCH ×2 (09:08→20:47)
[2017-05-22] MEDS: metFORMIN HCL 500 MG TAB PO SCH ×2 (09:08→17:22)
[2017-05-22] MEDS: predniSONE 20 MG TAB PO SCH (09:08)
[2017-05-22] MEDS: SODIUM CHLORIDE 0.9% FLUSH 10 ML FLUSH IV FLUSH SCH ×2 (09:10→20:47)
--- NOTE | 2017-05-22 10:33 | HHI.PR ---
Subjective Remarks Patient seen in room for follow up for asthma exacerbation Still with BARRAZA and increased cough Doing overall better but progress is slow Objective Vitals Vital Signs Date Time Temp Pulse Resp B/P (MAP) Pulse Ox O2 Delivery O2 Flow Rate FiO2 05/22/17 08:00 96.6 79 22 192/90 (124) 95 05/22/17 00:00 97.6 77 18 133/85 (101) 96 05/21/17 20:00 97.7 74 20 116/65 (82) 96 05/21/17 16:00 98.4 73 18 191/99 (129) 96 I/O 05/21/17 05/21/17 05/21/17 05/22/17 05/22/17 05/22/17 07:00 15:00 23:00 07:00 15:00 23:00 Intake Total 240 ml 650 ml 720 ml Balance 240 ml 650 ml 720 ml Intake Oral 240 ml 650 ml 720 ml # Voids 2 3 # Bowel Movements 0 Result Diagram: 05/20/17 1115 05/20/17 1115 Objective Remarks Acanthosis nigricans GENERAL: This is a well-nourished, well-developed patient, in no apparent distress. CARDIOVASCULAR: Regular rate and rhythm without murmurs, gallops, or rubs. RESPIRATORY: Clear to auscultation. Breath sounds equal bilaterally. No wheezes , rales, or rhonchi. GASTROINTESTINAL: Abdomen soft, non-tender, nondistended. Normal active bowel sounds MUSCULOSKELETAL: Extremities without clubbing, cyanosis, or edema. NEURO: Alert & Oriented x4 to person, place, time, situation. Moves all ext x4 A/P Problem List: (1) Asthma exacerbation ICD Code: J45.901 - Unspecified asthma with (acute) exacerbation Status: Acute Plan: Continue PO steroids with albuterol Patient education provided at bedside stable on room air (2) Diabetes ICD Code: E11.9 - Type 2 diabetes mellitus without complications Status: Chronic Plan: Nonadherent with medical treatment, continue diabetic diet and sliding scale Continue metformin And long-acting insulin hemoglobin A1c 9.9 Discharge Planning home in Estela Castillo MD May 22, 2017 10:33
[2017-05-22 12:00] VITALS: BP 183/91; PULSE 65; RESP 20; TEMP 96.6; O2SAT 95
[2017-05-22] MEDS: ENOXAPARIN SODIUM 40 MG/0.4 ML SYRINGE SQ SCH (12:41)
[2017-05-22 16:00] VITALS: BP 172/92; PULSE 82; RESP 18; TEMP 97.1; O2SAT 93
[2017-05-22 20:00] VITALS: BP 186/94; PULSE 87; RESP 20; TEMP 97.1; O2SAT 95
[2017-05-22 20:11] VITALS: O2SAT 98
[2017-05-22] MEDS: INSULIN DETEMIR 100 UNITS/ML VIAL SQ SCH (20:48)
[2017-05-22] MEDS: diphenhydrAMINE HCL 50 MG CAP PO PRN (20:51)
[2017-05-22] MEDS ORDERED: cloNIDine HCL 0.1 MG TAB PO ONE (22:15)
[2017-05-22] MEDS ORDERED: BENZONATATE 100 MG CAP PO PRN (22:45)
[2017-05-23] MEDS: RESP: ALBUTEROL 2.5 MG/3 ML NEB (PRN) NEB (05:37)
[2017-05-23 06:42] LABS: HEMATOCRIT 43.8 % (35.0-46.0); MEAN CELL VOLUME 79.3 FL (80.0-100.0); MEAN CORPUSCULAR HEMOGLOBIN 24.7 PG (27.0-34.0); MEAN CORPUSCULAR HGB CONC 31.2 % (32.0-36.0); PLATELET COUNT 225 TH/MM3 (150-450); RED BLOOD COUNT 5.52 MIL/MM3 (4.00-5.30); RED CELL DISTRIBUTION WIDTH 14.7 % (11.6-17.2); WHITE BLOOD COUNT 15.7 TH/MM3 (4.0-11.0)
[2017-05-23 06:53] LABS: POTASSIUM 3.2 MEQ/L (3.5-5.1)
[2017-05-23 07:00] LABS: BICARBONATE 31.3 MEQ/L (21.0-32.0); REVIEW FLAG FINAL
[2017-05-23] MEDS: RESP: ALBUTEROL 2.5 MG/IPRATROPIUM 0.5 MG NEB (SCH) NEB (07:56)
[2017-05-23 07:57] VITALS: O2SAT 97
[2017-05-23 08:00] VITALS: BP 134/68; PULSE 76; RESP 20; TEMP 96.9; O2SAT 96
[2017-05-23] MEDS: guaiFENesin E.R. 600 MG TAB PO SCH (08:14)
[2017-05-23] MEDS: metFORMIN HCL 500 MG TAB PO SCH (08:14)
[2017-05-23] MEDS: INSULIN ASPART SUPPLEMENTAL SCALE SQ SCH (08:14)
[2017-05-23] MEDS: SODIUM CHLORIDE 0.9% FLUSH 10 ML FLUSH IV FLUSH SCH (08:17)
[2017-05-23] MEDS ORDERED: MELO-1 PO (08:20)
[2017-05-23] MEDS ORDERED: predniSONE 20 MG TAB PO SCH (09:00)
[2017-05-23] MEDS ORDERED: LANCETS1 MI1 (11:33)
[2017-05-23] MEDS ORDERED: guaiFENesin ER PO (11:33)
[2017-05-23] MEDS ORDERED: IPRASOL NEB (11:33)
[2017-05-23] MEDS ORDERED: GLUCTES12 (11:33)
[2017-05-23] MEDS ORDERED: LEVEMIR SQ (11:33)
[2017-05-23] MEDS ORDERED: GLUCKIT15 (11:33)
[2017-05-23] MEDS ORDERED: METF500 PO (11:33)
--- NOTE | 2017-05-23 11:34 | HHI.DCPOC ---
Discharge Care Plan Diagnosis: (1) DM2 (diabetes mellitus, type 2) (2) Asthma Goals to Promote Your Health * To prevent worsening of your condition and complications * To maintain your health at the optimal level Directions to Meet Your Goals Take your medications as prescribed Follow your dietary instruction Follow activity as directed Keep your appointments as scheduled Take your immunizations and boosters as scheduled If your symptoms worsen call your PCP, if no PCP go to Urgent Care Center or Emergency Room Smoking is Dangerous to Your Health. Avoid second hand smoke Call the 24-hour hour crisis hotline for domestic abuse at Estela Coronado MD May 23, 2017 11:34
--- NOTE | 2017-05-23 11:36 | HHI.DS ---
Discharge Summary Admission Date May 20, 2017 at 10:50 Discharge Date: May 23, 2017 Admitting Diagnosis asthma exacerbation/failed outpatient therapy/chronic hypertension (1) Asthma exacerbation ICD Code: J45.901 - Unspecified asthma with (acute) exacerbation Status: Acute (2) Diabetes ICD Code: E11.9 - Type 2 diabetes mellitus without complications Status: Chronic Procedures none Brief History - From Admission This is a 46 year female with known asthma and about 2 weeks of increased work of breathing and dyspnea on exertion. Last 3 days have been worse and the patient was unable to give her with her breathing needs by using her nebulizers at home. She actually had run out of her medicine. She came to the emergency room for further evaluation and was tachypneic and with signs and symptoms of acute exacerbation of asthma. Patient received updrafts and felt better however she is still moving minimal amount of air and for this reason she has been recommended for further observation in the hospital. She has been present diagnosed as diabetic but has been unable to keep up with her medications due to cost. CBC/BMP: 05/23/17 0623 05/23/17 0623 Significant Findings Laboratory Tests Test 05/20/17 11:35 05/23/17 06:23 Blood Gas HCO3 28 mmol/L (22-26) Blood Gas Base Excess 3.8 mmol/L (-2-2) Arterial Blood Partial Pressure CO2 47 mmHg (38-42) White Blood Count 15.7 TH/MM3 (4.0-11.0) Red Blood Count 5.52 MIL/MM3 (4.00-5.30) Mean Corpuscular Volume 79.3 FL (80.0-100.0) Mean Corpuscular Hemoglobin 24.7 PG (27.0-34.0) Mean Corpuscular Hemoglobin Concent 31.2 % (32.0-36.0) Random Glucose 197 MG/DL (74-106) Potassium Level 3.2 MEQ/L (3.5-5.1) Imaging Last Impressions Chest X-Ray 05/20/17 0835 Signed Impressions: Service Date/Time: Saturday, May 20, 2017 09:29 - CONCLUSION: Underinflation with linear atelectasis versus scar at the left lung base. Otherwise, no acute finding is appreciated given the technique. Beto Owens MD PE at Discharge Acanthosis nigricans GENERAL: This is a well-nourished, well-developed patient, in no apparent distress. CARDIOVASCULAR: Regular rate and rhythm without murmurs, gallops, or rubs. RESPIRATORY: Clear to auscultation. Breath sounds equal bilaterally. No wheezes , rales, or rhonchi. GASTROINTESTINAL: Abdomen soft, non-tender, nondistended. Normal active bowel sounds MUSCULOSKELETAL: Extremities without clubbing, cyanosis, or edema. NEURO: Alert & Oriented x4 to person, place, time, situation. Moves all ext x4 Pt update on day of discharge Patient doing better today. Dyspnea improved although she still has some cough. No new events overnight. Discharge plan discussed with patient and nursing team Hospital Course Patient seen and treated for acute asthma exacerbation with poor home regimen. Patient did well with nebulizers and steroids. She was also uncontrolled diabetic due to nonadherence. Medications were adjusted and refilled. She did well Pt Condition on Discharge: Good Discharge Disposition: Discharge Home Discharge Time: <= 30 minutes Discharge Instructions DIET: Follow Instructions for: Diabetic Diet Activities you can perform: Regular-No Restrictions Follow up Referrals: PCP Follow-up - 1 Week New Medications: Blood Glucose Monitoring W/Device (Glucocom Blood Glucose Mo W/Device) 1 Kit Kit KIT .ROUTE DIRECTED for Blood Sugar Management, #1 Glucocom Test Strips (Glucocom Test Strips) 1 Meredith Meredith EA .ROUTE DIRECTED for Blood Sugar Management, #1 Lancets (Lancets) 1 Mis Mis EA .ROUTE DIRECTED for Blood Sugar Management, #1 0 Refills Insulin Detemir Inj (Levemir Inj) 1,000 unit/ 10 ML Vial 10 UNITS SQ HS for Blood Sugar Management, #31 INJECTION Do not mix with any other Insulin. Ipratropium-Albuterol Neb (Duoneb) 0.5-2.5 Mg/3 Ml Neb 1 AMPULE NEB Q6HR WHILE AWAKE NEB for Asthma Management, #62 AMPULE Metformin (Glucophage) 500 Mg Tab 500 MG PO BIDPC for Blood Sugar Management, #62 TAB [guaiFENesin ER] () 600 MG TABCR 600 MG PO BID for Cough, #14 Continued Medications: Albuterol 6.7 GM Inh (Proventil Hfa 6.7 GM Inh) 90 Mcg/Act Aer 2 PUFF INH Q4-6H PRN for SHORTNESS OF BREATH, #1 INHALER 0 Refills Meloxicam (Meloxicam) 15 Mg Tab 15 MG PO DAILY for Arthritis Pain, #30 TAB 0 Refills Methylprednisolone Dosepak (Medrol Dosepak) 4 Mg Dspk 4 MG PO DIRECTED, #1 DSPK 0 Refills Per Pharmacist direction Discontinued Medications: Azithromycin (Zithromax Z-Logan) 250 Mg Dspk 250 MG PO DIRECTED for Infection, #1 DSPK 0 Refills 500 MG (2 tabs) day 1, then 1 tab days 2-5. Estela Coronado MD May 23, 2017 11:36
== END 2017-05-23 12:18 | disposition home or self-care (01) ==
LOC: PHED 08:24 → PHEDA 10:50 → PH5A 12:16 → PH3B 05-22 13:24
PROVIDERS: ADMIT Hospitalist; ATTEND Hospitalist
DX: J45.901 Unspecified asthma with (acute) exacerbation (principal); I10 Essential (primary) hypertension; G47.30 Sleep apnea, unspecified; E11.65 Type 2 diabetes mellitus with hyperglycemia; Z79.4 Long term (current) use of insulin
CPT/HCPCS: 36600; 71010; 80048; 82805; 82948; 83036; 85025; 85027; 94640; 94664; 94799; 96372; 99285; G0378; J1100; J1650; J1815; J7512; J7613; Q0163

== ENCOUNTER 2017-11-22 10:13 | Emergency (ER) | payer BC ==
[~2017-11-22] VITALS: Ht 157.5 cm; Wt 146.0 kg
[~2017-11-22 10:13] MED LIST changes: +GLUCKIT15; +GLUCTES12; +IPRASOL NEB; +LANCETS1 MI1; +LEVEMIR SQ; +MELO15TA20 PO; +METF500 PO; -METF850T PO; -ZITHTAB PO; +guaiFENesin ER PO
[2017-11-22 10:20] VITALS: BP 142/68; PULSE 91; RESP 20; TEMP 98.4; O2SAT 93
[2017-11-22] MEDS ORDERED: EXENINJ SQ (10:34)
[2017-11-22] MEDS ORDERED: RESP: ALBUTEROL 2.5 MG/IPRATROPIUM 0.5 MG NEB (SCH) NEB ONE (10:45)
[2017-11-22] MEDS ORDERED: methylPREDNISolone SOD SUCC 125 MG/2 ML VIAL IV PUSH ONE (10:45)
[2017-11-22 11:00] LABS: AUTOMATED NEUTROPHIL # 12.2 TH/MM3 (1.8-7.7); BASOPHIL # 0.3 TH/MM3 (0-0.2); BASOPHIL % 1.8 % (0.0-2.0); EOSINOPHIL # 0.1 TH/MM3 (0-0.4); EOSINOPHIL % 0.6 % (0.0-4.0); HEMOGLOBIN 14.1 GM/DL (11.6-15.3); LYMPH % 20.7 % (9.0-44.0); LYMPHOCYTE # 3.7 TH/MM3 (1.0-4.8); MEAN CELL VOLUME 79.4 FL (80.0-100.0); MEAN CORPUSCULAR HGB CONC 32.7 % (32.0-36.0); MEAN PLATELET VOLUME 9.4 FL (7.0-11.0); MONO % 7.4 % (0.0-8.0); MONOCYTE # 1.3 TH/MM3 (0-0.9); NEUT % 69.5 % (16.0-70.0); PLATELET COUNT 232 TH/MM3 (150-450); RED BLOOD COUNT 5.42 MIL/MM3 (4.00-5.30); RED CELL DISTRIBUTION WIDTH 14.3 % (11.6-17.2); WHITE BLOOD COUNT 17.6 TH/MM3 (4.0-11.0)
[2017-11-22 11:10] LABS: CALCIUM 8.8 MG/DL (8.5-10.1)
[2017-11-22 11:14] LABS: CREATININE 0.72 MG/DL (0.50-1.00)
--- NOTE | 2017-11-22 11:25 | RADRPT ---
EXAM DATE/TIME: 11/22/2017 10:59 [facility] COMPARISON: CHEST SINGLE AP, May 20, 2017, 9:29. INDICATIONS : Short of breath. MEDICAL HISTORY : None. SURGICAL HISTORY : None. ENCOUNTER: Initial ACUITY: 2 weeks PAIN SCORE: 0/10 LOCATION: Bilateral chest FINDINGS: The lungs are hyperinflated. Left mid lung scarring is again noted. There is no evidence of consolida ting air space disease, mass densities or effusions. Heart and mediastinal structures are stable. Heart remains mildly enlarged. CONCLUSION: COPD No evidence of acute process. Enoch Sanabria MD on November 22, 2017 at 11:22 Board Certified Radiologist. This report was verified electronically.
[2017-11-22] MEDS ORDERED: VENTAER INH (11:43)
[2017-11-22] MEDS ORDERED: AMOX500C PO (11:43)
[2017-11-22] MEDS ORDERED: MEDR4PAK PO (11:43)
--- NOTE | 2017-11-22 11:43 | PD ---
HPI Chief Complaint: Cold / Flu Symptoms Time Seen by Provider: 10:26 Travel History International Travel<30 days: No Contact w/Intl Traveler<30days: No Traveled to known affect area: No History of Present Illness HPI This 47-year-old female is complaining of cough and congestion. She has history of asthma and bronchitis and is having an exacerbation now. She does have a history of type 2 diabetes and hypertension. She has no history of heart disease. She has been wheezing last couple of days and has been coughing up a lot of phlegm. PFSH Past Medical History Asthma: Yes (BRONCHIAL ASTHMA) Blood Disorders: No Anxiety: No Depression: No Heart Rhythm Problems: No Cancer: No Cardiac Catheterization: No Cardiovascular Problems: No High Cholesterol: No Chemotherapy: No Chest Pain: No Congestive Heart Failure: No COPD: No Cerebrovascular Accident: No Diabetes: Yes Patient Takes Glucophage: No Diminished Hearing: No Endocrine: Yes Genitourinary: No Hypertension: Yes Immune Disorder: No Musculoskeletal: No Neurologic: No Psychiatric: No Reproductive: No Respiratory: Yes Sleep Apnea: Yes Thyroid Disease: No ?: Not Menopausal: Yes : 3 Para: 2 Miscarriage: 1 : 0 Past Surgical History Body Medical Devices: IUD IMPLANT Section: Yes (X 1) Coronary Artery Bypass Graft: No Hysterectomy: No Tonsillectomy: Yes Other Surgery: No Family History Family Myocardial Infarction: Yes Social History Alcohol Use: Yes (SOC) Tobacco Use: No (DENIES) Substance Use: No Allergies-Medications (Allergen,Severity, Reaction): Coded Allergies: No Known Allergies (Verified Adverse Reaction, Unknown, 11/22/17) Reported Meds & Prescriptions Reported Meds & Active Scripts Active Glucocom Test Strips (Blood Glucose Test Strips) 1 Meredith Meredith Ea .ROUTE DIRECTED Lancets 1 Mis Mis Ea .ROUTE DIRECTED Glucocom Blood Glucose Mo W/Device (Device) 1 Kit Kit Kit .ROUTE DIRECTED Duoneb (Ipratropium-Albuterol Neb) 0.5-2.5 Mg/3 Ml Neb 1 Ampule NEB Q6HR WHILE AWAKE NEB Proventil Hfa 6.7 GM Inh (Albuterol Sulfate) 90 Mcg/Act Aer 2 Puff INH Q4-6H PRN Reported Bydureon Inj (Exenatide) 2 Mg Vial 2 Mg SQ Q7D Review of Systems General / Constitutional: No: Fever, Chills Eyes: No: Diploplia, Blurred Vision HENT: No: Headaches, Vertigo Cardiovascular: No: Chest Pain or Discomfort Respiratory: Positive: Cough, Shortness of Breath Gastrointestinal: No: Nausea, Vomiting Genitourinary: No: Urgency, Frequency Musculoskeletal: No: Myalgias, Arthralgias Skin: No Rash, No Itching Neurologic: No: Weakness Endocrine: No: Heat Intolerance, Cold Intolerance Hematologic/Lymphatic: No: Easy Bruising Physical Exam Narrative GENERAL: Well-developed female SKIN: Focused skin assessment warm/dry. HEAD: Atraumatic. Normocephalic. EYES: Pupils equal and round. No scleral icterus. No injection or drainage. ENT: No nasal bleeding or discharge. Mucous membranes pink and moist. NECK: Trachea midline. No JVD. CARDIOVASCULAR: Regular rate and rhythm. No murmur appreciated. RESPIRATORY: There are scattered wheezes and rhonchi GASTROINTESTINAL: Abdomen soft, non-tender, nondistended. Hepatic and splenic margins not palpable. MUSCULOSKELETAL: No obvious deformities. No clubbing. No cyanosis. No edema. NEUROLOGICAL: Awake and alert. No obvious cranial nerve deficits. Motor grossly within normal limits. Normal speech. PSYCHIATRIC: Appropriate mood and affect; insight and judgment normal. Data Data Last Documented VS Vital Signs Date Time Temp Pulse Resp B/P (MAP) Pulse Ox O2 Delivery O2 Flow Rate FiO2 11/22/17 10:28 92 20 93 Room Air 11/22/17 10:20 98.4 Orders Orders Complete Blood Count With Diff (11/22/17 10:34) Basic Metabolic Panel (Bmp) (11/22/17 10:34) Chest, Single Ap (11/22/17 10:34) Methylprednisolone So Succ Inj (Solumedr (11/22/17 10:45) Albuterol-Ipratropium Neb (Duoneb Neb) (11/22/17 10:45) Potassium Chloride (Kcl) (11/22/17 11:45) Insulin Human Regular Inj (Novolin R Inj (11/22/17 11:45) Labs Laboratory Tests Test 11/22/17 10:52 White Blood Count 17.6 TH/MM3 Red Blood Count 5.42 MIL/MM3 Hemoglobin 14.1 GM/DL Hematocrit 43.0 % Mean Corpuscular Volume 79.4 FL Mean Corpuscular Hemoglobin 26.0 PG Mean Corpuscular Hemoglobin Concent 32.7 % Red Cell Distribution Width 14.3 % Platelet Count 232 TH/MM3 Mean Platelet Volume 9.4 FL Neutrophils (%) (Auto) 69.5 % Lymphocytes (%) (Auto) 20.7 % Monocytes (%) (Auto) 7.4 % Eosinophils (%) (Auto) 0.6 % Basophils (%) (Auto) 1.8 % Neutrophils # (Auto) 12.2 TH/MM3 Lymphocytes # (Auto) 3.7 TH/MM3 Monocytes # (Auto) 1.3 TH/MM3 Eosinophils # (Auto) 0.1 TH/MM3 Basophils # (Auto) 0.3 TH/MM3 CBC Comment DIFF FINAL Differential Comment Blood Urea Nitrogen 10 MG/DL Creatinine 0.72 MG/DL Random Glucose 315 MG/DL Calcium Level 8.8 MG/DL Sodium Level 136 MEQ/L Potassium Level 3.3 MEQ/L Chloride Level 98 MEQ/L Carbon Dioxide Level 32.0 MEQ/L Anion Gap 6 MEQ/L Estimat Glomerular Filtration Rate 104 ML/MIN [facility] Medical Decision Making Medical Screen Exam Complete: Yes Emergency Medical Condition: Yes Medical Record Reviewed: Yes Differential Diagnosis Differential includes bronchitis, asthma, pneumonia Narrative Course Chest x-ray is negative for pneumonia. Is been given nebulizer treatments with improvement of her wheezing and congestion. She will be put on Medrol, amoxicillin and albuterol. Diagnosis is bronchitis with bronchospasm Diagnosis Primary Impression: Bronchitis with bronchospasm Scripts Albuterol 18 GM Inh (Ventolin Hfa 18 GM Inh) 90 Mcg/Act Aer 2 PUFF INH Q4-6H Y for SHORTNESS OF BREATH, #1 INHALER 0 Refills Prov: Gómez Montes MD 11/22/17 Methylprednisolone Dosepak (Medrol Dosepak) 4 Mg Dspk 4 MG PO DIRECTED, #1 DSPK 0 Refills Per Pharmacist direction Prov: Gómez Montes MD 11/22/17 Amoxicillin (Amoxicillin) 500 Mg Cap 500 MG PO TID for Infection for 10 Days, CAP 0 Refills Prov: Gómez Montes MD 11/22/17 Disposition: 01 DISCHARGE HOME Condition: Stable Gómez Montes MD Nov 22, 2017 11:43
[2017-11-22] MEDS ORDERED: POTASSIUM CHLORIDE 20 MEQ CONTROLLED RELEASE TAB PO ONE (11:45)
[2017-11-22] MEDS ORDERED: INSULIN HUMAN REGULAR 1,000 UNITS/10 ML VIAL SQ ONE (11:45)
[2017-11-22 11:56] VITALS: BP 143/72
== END 2017-11-22 11:58 | disposition home or self-care (01) ==
LOC: PHED 10:13
DX: J40 Bronchitis, not specified as acute or chronic (principal); J45.909 Unspecified asthma, uncomplicated; E11.9 Type 2 diabetes mellitus without complications; I10 Essential (primary) hypertension; G47.30 Sleep apnea, unspecified; Z79.51 Long term (current) use of inhaled steroids; Z79.899 Other long term (current) drug therapy
CPT/HCPCS: 71045; 80048; 85025; 94640; 94664; 96372; 96374; 99284; J1815; J2930

== ENCOUNTER 2018-02-24 13:32 | Observation (INO) ==
[2018-02-25] MEDS ORDERED: Acetaminophen 500 MG Tablet PO PRN (02:09)
[2018-02-25 02:54] VITALS: RESP 18
[2018-02-25] MEDS: Morphine Inj 4 MG/ML Vial IV.PUSH PRN ×2 (06:16→12:41)
[2018-02-25] MEDS ORDERED: Aspirin 325 MG Tablet PO SCH (09:00)
[2018-02-25 09:26] VITALS: O2SAT 100
[2018-02-25] MEDS ORDERED: Regadenoson Inj 0.4 MG/5 ML Syringe IV.PUSH ONE (09:39)
--- NOTE | 2018-02-25 12:44 | NM ---
EXAM DATE: 02/25/2018 12:36 PM EDT AGE/SEX: 47 years / Female INDICATIONS:Angina. . Chest pain radiating to the left arm with nausea and dyspnea. CLINICAL DATA: This is the patient's initial encounter. Patient reports that signs and symptoms have been present for 1 day and indicates a pain score of 8/10. MEDICAL/SURGICAL HISTORY: Diabetes mellitus type II. Asthma. Tonsillectomy. COMPARISON: No prior exams available for comparison. DOSE: 35 mCi Tc 99m Myoview at stress 11 mCi [id number] at rest 0.4 mg Lexiscan STRESS SYMPTOMS: Dyspnea. EJECTION FRACTION: 62 % TECHNIQUE: The patient underwent pharmacologic stress with infusion of prescribed dose. Continuous ECG tracing was monitored during stress. Gated SPECT imaging was performed after stress and conventi onal SPECT imaging was performed at rest. The examination was performed on a SPECT /CT scanner, both attenuation and non-corrected datasets were reviewed. FINDINGS: The best perfused myocardium is the anterior lateral wall. There is a fixed defect in the septum. There is a small segment redistribution high in the anterior wall towards the base of questionable si gnificance. . Gated Study: There are intact wall motion and wall thickening without hypokinetic or dyskinetic se gments. The ejection fraction is calculated at 62%. RISK CATEGORY: Low (<1% Annual Motality Rate) CONCLUSION: 1. Small segment redistribution anterior wall towards the base of questionable significance. Correla tion suggested. Electronically signed by: Rich Guerrero MD 02/25/2018 12:42 PM EDT
[2018-02-25 13:53] VITALS: BP 159/102; PULSE 76; TEMP 98
--- NOTE | 2018-05-29 12:48 | TR ---
Date Performed: 02/25/2018 Time Performed: 10:55:21 DOCTOR: Lewis Curry DRUG LIST: [employer] Asthma CLINICAL HISTORY: REASON FOR TEST: CHEST PAIN REASON FOR ENDING: OBSERVATION: CONCLUSION: COMMENTS: Lexiscan stress test was performed under standard four minute protocol. Radionuclide was injected one minute prior to ending the test. No electrocardiographic abormalities were present t o suggest ischemia. Nuclear imaging and interpretation are pending.
== END 2018-02-25 17:20 | disposition home or self-care (01) ==
LOC: UNDODISOB → NEPFCDU 13:32
PROVIDERS: ADMIT Internal Medicine Interventional Cardiology; ATTEND Internal Medicine Interventional Cardiology